=== PATIENT | male | born 1970 | race Two or more races ===

== ENCOUNTER 2018-06-23 10:25 | Emergency (ER) | payer OTHER ==
[2018-06-23 10:30] VITALS: BMI 30.4
--- NOTE | 2018-06-23 10:34 | PDOC ---
History of Present Illness - History of Present Illness Initial Comments: 06/23/18 12:10 The patient is a 47-year-old male with no known past medical history presents to the emergency department with redness to the R. calf. The patient presents with 2 days of swelling, redness, and pain to the right calf, with unknown etiology. The patient reports the redness been the same size since presentation and the pain is aggravated with touch. The patient state's the pain is 5/10 in severity, states it feels like its under the skin, feels tight and hard. The patient denies recent surgery, recent travel, long train or car ride, fever. Denies daily medication use. Denies prior similar incidents. Allergies: NKA Social history: No past or present use of tobacco, alcohol or recreational drug. Surgical history: None reported PCP:Dr. Derick Ortega ( ) <Gely Feliz - Last Filed: 06/23/18 12:10> - General History Source: Patient Exam Limitations: No Limitations <Leonela Brandon - Last Filed: 06/26/18 22:43> - General Chief Complaint: Pain Stated Complaint: SWOLLEN RT CALF R/O DVT Time Seen by Provider: 06/23/18 10:33 Past History <Gely Feliz - Last Filed: 06/23/18 12:10> - Past Medical History COPD: No CHF: No DVT: No - Suicide/Smoking/Psychosocial Hx Smoking History: Never smoked Have you smoked in the past 12 months: No Information on smoking cessation initiated: No Hx Alcohol Use: No Drug/Substance Use Hx: No Substance Use Type: None <Leonela Brandon - Last Filed: 06/26/18 22:43> - Past Medical History Allergies/Adverse Reactions: Allergies Allergy/AdvReac Type Severity Reaction Status Date / Time No Known Allergies Allergy Verified 06/23/18 10:30 Home Medications: Ambulatory Orders Cephalexin Monohydrate [Keflex -] 500 mg PO Q6H #28 capsule 06/23/18 Sulfamethoxazole/Trimethoprim [Bactrim Ds -] 1 tab PO BID #14 tablet 06/23/18 Review of Systems - Review of Systems Comments:: 06/23/18 12:10 GENERAL/CONSTITUTIONAL: No fever or chills. No weakness. HEAD, EYES, EARS, NOSE AND THROAT: No change in vision. No ear pain or discharge. No sore throat. CARDIOVASCULAR: No chest pain or shortness of breath. RESPIRATORY: No cough, wheezing, or hemoptysis. GASTROINTESTINAL: No nausea, vomiting, diarrhea or constipation. GENITOURINARY: No dysuria, frequency, or change in urination. MUSCULOSKELETAL: + R. calf swelling, redness and pain. No joint or muscle swelling or pain. No neck or back pain. SKIN: No rash NEUROLOGIC: No headache, vertigo, loss of consciousness, or change in strength/ sensation. ENDOCRINE: No increased thirst. No abnormal weight change. HEMATOLOGIC/LYMPHATIC: No anemia, easy bleeding, or history of blood clots. ALLERGIC/IMMUNOLOGIC: No hives or skin allergy. <Gely Feliz - Last Filed: 06/23/18 12:10> *Physical Exam - Vital Signs Last Vital Signs Temp Pulse Resp BP Pulse Ox 98.6 F 108 H 18 115/77 98 06/23/18 10:28 06/23/18 10:28 06/23/18 10:28 06/23/18 10:28 06/23/18 10:28 - Physical Exam Comments: 06/23/18 12:13 GENERAL: The patient is in no acute distress. HEAD: Normal with no signs of trauma. EYES: PERRLA, EOMI, sclera anicteric, conjunctiva clear. ENT: Ears normal, nares patent, oropharynx clear without exudates. Moist mucous membranes. NECK: Normal range of motion, supple without lymphadenopathy, JVD, or masses. LUNGS: Breath sounds equal, clear to auscultation bilaterally. No wheezes, and no crackles. HEART:Regular rate and rhythm, normal S1 and S2 without murmur, rub or gallop. ABDOMEN: Soft, nontender. No guarding, no rebound. No masses palpable. EXTREMITIES: +R. Lower extremity swelling and erythema. Normal range of motion. No clubbing or cyanosis. NEUROLOGICAL: Cranial nerves II through XII grossly intact. Normal speech. No focal neurological deficits. MUSCULOSKELETAL: Back non-tender to palpation, no CVA tenderness SKIN: Warm, Dry, normal turgor, no rashes or lesions noted. <Gely Feliz - Last Filed: 06/23/18 12:10> - Vital Signs Last Vital Signs Temp Pulse Resp BP Pulse Ox 98.6 F 108 H 18 115/77 98 06/23/18 10:28 06/23/18 10:28 06/23/18 10:28 06/23/18 10:28 06/23/18 10:28 <Leonela Brandon - Last Filed: 06/26/18 22:43> ED Treatment Course - LABORATORY CBC & Chemistry Diagram: 06/23/18 11:00 06/23/18 11:00 - ADDITIONAL ORDERS Additional order review: Laboratory Results 06/23/18 11:00 Sodium 139 Potassium 4.2 Chloride 105 Carbon Dioxide 26 Anion Gap 8 BUN 13 Creatinine 1.0 Creat Clearance w eGFR > 60 Random Glucose 103 Calcium 8.7 Total Bilirubin 0.5 AST 23 ALT 44 Alkaline Phosphatase 57 C-Reactive Protein 0.9 H Total Protein 7.2 Albumin 3.7 06/23/18 11:00 RBC 5.30 MCV 86.4 MCHC 33.3 RDW 13.7 MPV 8.3 Neutrophils % 72.8 Lymphocytes % 14.5 Monocytes % 11.1 H Eosinophils % 1.2 Basophils % 0.4 - Medications Given in the ED: ED Medications Discontinued Medications Generic Name Dose Route Start Last Admin Trade Name Freq PRN Reason Stop Dose Admin Cephalexin HCl 500 mg 06/23/18 10:43 06/23/18 11:18 Keflex - PO 06/23/18 10:44 500 mg ONCE ONE Administration Ibuprofen 600 mg 06/23/18 10:43 06/23/18 11:18 Motrin - PO 06/23/18 10:44 600 mg ONCE ONE Administration Trimethoprim/Sulfamethoxazole 1 each 06/23/18 10:43 06/23/18 11:18 Bactrim Ds - PO 06/23/18 10:44 1 each ONCE ONE Administration <Gely Feliz - Last Filed: 06/23/18 12:10> - LABORATORY CBC & Chemistry Diagram: 06/23/18 11:00 06/23/18 11:00 <Leonela Brandon - Last Filed: 06/26/18 22:43> Medical Decision Making - Medical Decision Making 06/23/18 10:48 Mr. Beltran is otherwise healthy 47-year-old male presented to emergency department with pain in his right lower extremity. Symptoms haven't been present for several days. No systemic signs of illness. He has noticed swelling in the right lower extremity. No bites, no trauma. No prior episodes of cellulitis in the past. He's had no recent travel, no immobilization, no cancer diagnoses that he knows of He denies chest pain, shortness of breath, palpitations. Patient's heart is regular, tachycardic Lungs are clear Right lower extremity is swollen/edematous as compared to the left. On the medial calf there is a large area of erythema and warmth. This area is tender to palpation. This does not extend past the knee superiorly, this does not extend past the ankle inferiorly. This area is probably 6 cm in diameter, and is not circumferential. Patient has a negative Homans sign. No limitations of motion of the knee, ankle. No crepitus Patient's diagnosis is most likely cellulitis however we will perform duplex to rule out DVT/thrombophlebitis. Patient is unlikely to have a diagnosis of MRSA as he has had no prior cellulitis, no prior abscesses, and works in the [employer] (not in the hospital) . Will do: Labs, cultures Will demarcate the area of erythema X-ray of the lower extremities r/o free air Duplex of the lower extremity to rule out DVT Tylenol for pain Will contact patient's PMD who works at [employer] 06/23/18 11:26 Laboratory Tests 06/23/18 11:00 WBC 8.9 Hgb 15.2 Hct 45.8 Plt Count 212 Neutrophils % 72.8 Lymphocytes % 14.5 06/23/18 12:48 Laboratory Tests 06/23/18 06/23/18 11:00 11:00 WBC 8.9 Hgb 15.2 Hct 45.8 Plt Count 212 BUN 13 Creatinine 1.0 Duplex negative for DVT Xray no free air, no lesions noted Case reviewed with Dr. Ortega He will see this patient in follow up before the end of the week Clinical Impression: Cellulitis, initial presentation <Leonela Brandon - Last Filed: 06/26/18 22:43> *DC/Admit/Observation/Transfer - Attestations Scribe Attestion: 06/23/18 12:13 Documentation prepared by Gely Feliz, acting as medical claims specialist for Leonela Brandon MD. <Gely Feliz - Last Filed: 06/23/18 12:10> - Discharge Dispostion Decision to Admit order: No <Leonela Brandon - Last Filed: 06/26/18 22:43> Diagnosis at time of Disposition: Cellulitis of right leg - Discharge Dispostion Disposition: HOME Condition at time of disposition: Stable - Prescriptions Prescriptions: Cephalexin Monohydrate [Keflex -] 500 mg PO Q6H #28 capsule Sulfamethoxazole/Trimethoprim [Bactrim Ds -] 1 tab PO BID #14 tablet - Referrals Referrals: Derick Ortega [Primary Care Provider] - - Patient Instructions Printed Discharge Instructions: DI for Cellulitis -- Adult Additional Instructions: mr Beltran Thank you for coming in to the ER today Please take medications as prescribed Please try to take a probiotic or yogurt as well while taking antibiotic Please monitor yourself for fevers and chills. If you notice this, please return to the ER. Please monitor the location of the redness, if it extends past the line I ritesh, please come back to the ER If you have any other concerns or complaints, please feel free to come back to the ER for re assessment Dr Ortega is expecting to see you in the office before the end of the week! - Post Discharge Activity Forms/Work/School Notes: Back to Work
[2018-06-23] MEDS ORDERED: SULFAMETHOXAZOLE/TRIMETHOPRIM 800MG/160MG D.S. TABLET PO ONE (10:43)
[2018-06-23] MEDS ORDERED: IBUPROFEN 600 MG TABLET (FP) PO ONE ×2 (10:43→11:13)
[2018-06-23] MEDS ORDERED: CEPHALEXIN MONOHYDRATE 500 MG CAPSULE (UD) PO ONE (10:43)
[2018-06-23] MEDS ORDERED: CEPHALEXIN MONOHYDRATE 500 MG CAPSULE (UD) ONE (11:12)
[2018-06-23] MEDS ORDERED: SULFAMETHOXAZOLE/TRIMETHOPRIM 800MG/160MG D.S. TABLET ONE (11:13)
[2018-06-23 11:15] LABS: BASO % 0.4 % (0-2.0); EOS % 1.2 % (0-4.5); HEMATOCRIT 45.8 % (35.4-49); HEMOGLOBIN 15.2 GM/dL (11.7-16.9); LYMPH % 14.5 % (8-40); MCH 28.7 pg (25.7-33.7); MCHC 33.3 g/dl (32.0-35.9); MEAN CELL VOLUME 86.4 fl (80-96); MEAN PLT VOLUME 8.3 fl (7.5-11.1); MONO % 11.1 % (3.8-10.2); NEUT % 72.8 % (42.8-82.8); PLATELET COUNT 212 K/MM3 (134-434); RDW 13.7 % (11.9-15.9); WHITE BLOOD COUNT 8.9 K/mm3 (4.0-10.0)
[2018-06-23 11:37] LABS: ALBUMIN 3.7 g/dl (3.4-5.0); ALK PHOS 57 U/L (45-117); ANION GAP 8 MMOL/L (8-16); BILIRUBIN,TOTAL 0.5 mg/dL (0.2-1); BLOOD UREA NITROGEN 13 mg/dL (7-18); CALCIUM 8.7 mg/dL (8.5-10.1); CHLORIDE 105 mmol/L (98-107); CO2 26 mmol/L (21-32); GLUCOSE,RANDOM 103 mg/dL (74-106); POTASSIUM 4.2 mmol/L (3.5-5.1); SGOT/AST 23 U/L (15-37); SGPT/ALT 44 U/L (13-61); SODIUM 139 mmol/L (136-145); TOT PROT 7.2 g/dl (6.4-8.2)
[2018-06-23 12:19] LABS: ERYTHROCYTE SEDIMENTATION RATE 7 mm/hr (0-10)
[2018-06-23 13:04] VITALS: BP 133/78; PULSE 78; TEMP 98.2
== END 2018-06-23 13:11 | disposition home or self-care (01) ==
LOC: JER 10:25
DX: L03.115 Cellulitis of right lower limb (principal)
CPT/HCPCS: 36415; 73590-TC-RT-FY; 80053; 85025; 85651; 86140; 87040; 93971-TC; 99283-25

== ENCOUNTER 2022-09-19 13:06 | Emergency (ER) | payer OTHER ==
[2022-09-19 13:16] VITALS: BP 120/80; PULSE 83; RESP 15; TEMP 98.7; BMI 30.4
== END 2022-09-19 15:00 | disposition home or self-care (01) ==
LOC: JERFT 13:06
DX: M79.645 Pain in left finger(s) (principal)
CPT/HCPCS: 99281-25